=== PATIENT | female | born 1995 | race Asian ===

== ENCOUNTER 2019-10-03 10:57 | Emergency (ER) | payer OTHER ==
[~2019-10-03] VITALS: Ht 152.4 cm; Wt 45.0 kg
[2019-10-03 11:18] VITALS: TEMP 98.6
[2019-10-03 13:10] VITALS: BP 101/60
[2019-10-03 13:40] VITALS: PULSE 61
== END 2019-10-03 13:40 | disposition home or self-care (01) ==
LOC: COL.ER 10:57
DX: S16.1XXA Strain of muscle, fascia and tendon at neck level, initial encounter (principal); V43.52XA Car driver injured in collision with other type car in traffic accident, initial encounter